=== PATIENT | female | born 1975 ===

== ENCOUNTER 2018-05-27 18:56 | Emergency (ER) | payer OTHER ==
[~2018-05-27] VITALS: Ht 165.1 cm; Wt 68.0 kg
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
[2018-05-27] MEDS ORDERED: LORA-258 PO (19:24)
[2018-05-27] MEDS ORDERED: BUPR300T52 PO (19:24)
[2018-05-27] MEDS ORDERED: AMPH20CA3 PO (19:24)
[2018-05-27] MEDS ORDERED: IBUPROFEN 800 MG TABLET PO ONE (19:45)
[2018-05-27] MEDS ORDERED: IBUPROFEN 800 MG TABLET ONE (19:48)
[2018-05-27 20:15] LABS: *BILIRUBIN,URIN NEGATIVE (NEGATIVE); *BLOOD, URINE 1+ (NEGATIVE); *CLARITY,URINE CLEAR (CLEAR); *COLOR,URINE YELLOW (YELLOW); *KETONES,URINE NEGATIVE (NEGATIVE); *PROTEIN,URINE NEGATIVE (NEGATIVE); *URINE HCG, QUAL NEGATIVE (NEGATIVE); *UROBILINOGEN,URINE 0.2 E.U./dl (NORMAL); LEUKOCYTE ESTERASE ,URINE NEGATIVE (NEGATIVE); NITRITE, URINE NEGATIVE (NEGATIVE); PH,URINE 6.5 (5.0-8.0); UGLUCOSE NEGATIVE (NEGATIVE)
[2018-05-27 20:19] LABS: BACTERIA,URINE FEW /HPF (NONE SEEN); MUCUS,URINE MODERATE /LPF (0-FEW); SQUAMOUS EPITHELIAL CELL,UR MODERATE /HPF (NONE SEEN)
[2018-05-27] MEDS ORDERED: HYDROCODONE/APAP 5-325MG TABLET ONE (20:56)
[2018-05-27] MEDS ORDERED: HYDROCODONE/APAP 5-325MG TABLET PO ONE (21:00)
--- NOTE | 2018-05-27 21:22 | NUR ---
Patient discharged to home in stable conditon. Written and verbal after care instructions given. Patient verbalizes understanding of instructions. Pt ambulates out of ER in steady gait. All belongings with pt. VSS. NAD noted. Pt states she has a friend to drive her home.
[2018-05-27 21:23] VITALS: BP 102/79
== END 2018-05-27 21:24 | disposition home or self-care (01) ==
LOC: ER 18:59
DX: S13.4XXA Sprain of ligaments of cervical spine, initial encounter (principal); S39.012A Strain of muscle, fascia and tendon of lower back, initial encounter; Z88.8 Allergy status to other drugs, medicaments and biological substances; V49.49XA Driver injured in collision with other motor vehicles in traffic accident, initial encounter; Y93.89 Activity, other specified; Y92.89 Other specified places as the place of occurrence of the external cause; Y99.8 Other external cause status
CPT/HCPCS: 72125; 72131; 84703; A4663